=== PATIENT | male | born 1950 | race Caucasian/White ===

== ENCOUNTER 2018-04-18 00:55 | Emergency (ER) | payer SELFPAY ==
[2018-04-18] MEDS ORDERED: IPRATROPIUM BROM 0.5MG/2.5ML ONE (01:44)
[2018-04-18] MEDS ORDERED: DEXAMETHASONE 10 MG/ML VIAL ONE (01:44)
[2018-04-18] MEDS ORDERED: Levofloxacin500mg IV 500 MG/100 ML BAG IV ONE (01:44)
[2018-04-18] MEDS ORDERED: ALBUTEROL 2.5 MG/3 ML NEB SOL ONE (01:44)
[2018-04-18] MEDS ORDERED: NA CHLORIDE 0.9% 0 ML ONE (01:44)
[2018-04-18] MEDS ORDERED: FAMOTIDINE 20 MG/2 ML VIAL IV ONE (01:45)
[2018-04-18 01:49] LABS: Arterial Blood Carboxyhemoglob 7.4 % (0-1.5); Blood Gas Oxyhemoglobin 74.8 % (94-97); Blood O2 Saturation 82.1 % (92-98.5)
[2018-04-18 01:55] LABS: Absolute Lymphocytes (CBC) 0.8 K/uL (0.7-4.9); Absolute Monocytes 1.2 K/uL (0.1-1.3); Absolute Neutrophil 18.2 K/uL (1.8-8.0); Basophils % 0.1 % (0-1.3); Lymphocytes % 3.8 % (15.3-44.8); MPV 7.4 fL (7.6-11.3); Monocytes % 5.8 % (3.3-12.3); RBC Red Blood Cell Count 1.49 M/uL (4.33-5.43)
--- NOTE | 2018-04-18 01:55 | ER ---
Nurse's Notes [facility] Name: Dieudonne Ramirez Age: 67 yrs Sex: Male : 1950 Arrival Date: 04/18/2018 Time: 00:56 Bed 2 Private MD: Diagnosis: Dyspnea-supraglottic magligancy, lung malignancy;Chronic obstructive pulmonary disease with (acute) exacerbation;Hypoxemia;Gastrointestinal hemorrhage, unspecified-upper;Anemia, unspecified-upper gi bleed Presentation: 04/18 01:02 Presenting complaint: EMS states: Patient was the back porch smoking c/o shortness of tl1 breath and weakness for approx 1 day. Pt states he thinks he has an infection and has been coughing up lots of mucous. Pt states he has lost approx 30 pounds in approx 3 months. Pt states he has had a sore throat for 3 months. Transition of care: patient was not received from another setting of care. Onset of symptoms was April 18, 2018. Risk Assessment: Do you want to hurt yourself or someone else? Patient reports no desire to harm self or others. Initial Sepsis Screen: Does the patient meet any 2 criteria? RR > 20 per min. Systolic BP < 90 mmHg. Does the patient have a suspected source of infection? Yes: Productive cough/pneumonia If YES to both, name of provider notified: Andrea Nina MD. Care prior to arrival: Medication(s) given: Albuterol Neb Atrovent Neb x 1, solumedrol 125mg. 01:02 Method Of Arrival: EMS: [facility] tl1 01:02 Acuity: ROC 2 tl1 Historical: - Allergies: 04:40 No Known Allergies; tl1 - Home Meds: 01:03 valacyclovir 500 mg Oral tab 2 tabs 3 times per day [Active]; Albuterol Nebulizer bb [Active]; - PMHx: 04:40 COPD; shingles; tl1 - PSHx: 04:40 eye surgery; tl1 - Immunization history:: Adult Immunizations unknown. - Social history:: Smoking status: Patient uses tobacco products, smokes one pack cigarettes per day. Patient uses alcohol, on a daily basis. claims drinking about a 6 pack/day. - Family history:: not pertinent. - Ebola Screening: : Patient negative for fever greater than or equal to 101.5 degrees Fahrenheit, and additional compatible Ebola Virus Disease symptoms Patient denies exposure to infectious person Patient denies travel to an Ebola-affected area in the 21 days before illness onset. Screenin:07 Abuse screen: Denies threats or abuse. Denies injuries from another. Nutritional tl1 screening: Had unintentional weight loss of 10 pounds or more. Tuberculosis screening: Possible symptoms: cough for more than 2 weeks. Fall Risk IV access (20 points). Assessment: 02:18 General: Appears distressed, unkempt, cachectic, Behavior is calm, cooperative, tl1 appropriate for age. Pain: Denies pain. Neuro: Level of Consciousness is awake, alert, obeys commands, Oriented to person, place, time, situation. Cardiovascular: Reports shortness of breath, Denies chest pain. Cardiovascular: skin cool. Rhythm is sinus tachycardia with PACs. Respiratory: Reports shortness of breath at rest cough that is productive, labored breathing Airway is patent Trachea midline Respiratory effort is labored, shallow, weak, Breath sounds are diminished bilaterally. Breath sounds with rhonchi bilaterally. the patient has moderate shortness of breath. GI: Abdomen is non-distended, Bowel sounds present X 4 quads. Abd is soft and non tender X 4 quads. : Reports decreased urine output. EENT: No signs and/or symptoms were reported regarding the EENT system. 03:16 Reassessment: Patient to CT Scan. ca1 03:50 Reassessment: Patient appears in no apparent distress at this time. Patient is alert, ca1 oriented x 3, equal unlabored respirations, skin warm/dry/pink. Preparing patient for BT. 04:15 Reassessment: 1st unit of RBC started. Monitored patient at bedside every 5 minutes for ca1 15 minutes. 04:45 Reassessment: Patient appears in no apparent distress at this time. Reassessment: BT ca1 still ongoing. No adverse reaction noted. 04:50 Reassessment: Called report to Mariely Liriano RN of [facility]. ca1 05:36 Reassessment: Patient appears in no apparent distress at this time. Cleaned up patient, ca1 changed to a clean gown. Patient tolerates bed movements and repositioning well. Continued to have a productive cough of yellowish green sputum. 06:15 Reassessment: Completed first BT of PRBC. Patient tolerated well, no adverse reaction ca1 throughout transfusion. 06:30 Reassessment: 2nd bag of PRBC transfused. Monitored patient. ca1 06:30 Reassessment: [facility] At bedside for transfer. ca1 Vital Signs: 01:06 BP 82 / 45; Pulse 83; Resp 24; Temp 98.9; Pulse Ox 89% on R/A; Weight 65.32 kg; Height tl1 5 ft. 7 in. (170.18 cm); Pain 0/10; 02:22 BP 89 / 57; Pulse 108; Resp 26; Pulse Ox 100% on Nebulizer Mask; Pain 0/10; tl1 03:59 BP 90 / 60; Pulse 116; Resp 16; Pulse Ox 99% on 5 lpm NC; ca1 04:00 BP 90 / 60; Pulse 107; Resp 16; Pulse Ox 100% on 5 lpm NC; ca1 05:17 BP 93 / 56; Pulse 104; Resp 16; Pulse Ox 100% on 2 lpm NC; ca1 06:15 BP 90 / 57; Pulse 103; Resp 17; Pulse Ox 99% on 2 lpm NC; ca1 06:15 ca1 06:45 BP 109 / 61; Pulse 96; Resp 16; Pulse Ox 99.4% on 2 lpm NC; ca1 01:06 Body Mass Index 22.55 (65.32 kg, 170.18 cm) tl1 04:00 Baseline VS pre BT. See Transfusion Record Sheet for VS monitoring. ca1 06:15 VS for completion of 1st unit of PRBC. ca1 06:45 2nd unit of PRBC Transfusion continued with EMS. ca1 ED Course: 00:56 Patient arrived in ED. al2 01:00 Andrea Nina MD is Attending Physician. skyler 01:05 Triage completed. tl1 01:06 Arm band placed on right wrist. tl1 01:10 Patient has correct armband on for positive identification. Placed in gown. Bed in low ca1 position. Call light in reach. Side rails up X2. court monitor on. Pulse ox on. NIBP on. Warm blanket given. 01:21 X-ray completed. Portable x-ray completed in exam room. Patient tolerated procedure kw well. 01:25 XRAY Chest (1 view) In Process Unspecified. EDMS 01:36 Initial lab(s) drawn, by me, sent to lab. Missed attempt(s): 20 gauge in left forearm. jd3 Bleeding controlled, band aid applied, catheter tip intact. Inserted saline lock: 22 gauge in right antecubital area, using aseptic technique. Blood collected. 01:42 Radiology exam delayed due to lab results not completed at this time. (BUN/Creatinine). sj 01:52 Shayne Connell MD is Hospitalizing Provider. skyler 02:04 Radiology exam delayed due to lab results not completed at this time. (BUN/Creatinine). kw1 02:17 Patricia Espinosa RN is Primary Nurse. tl1 02:40 Medrano cath inserted, using sterile technique, 16 Fr., by wa, balloon inflated, to ca1 gravity drainage, clamped. urine specimen collected. 02:45 Consent for blood and/or blood product transfusion explained by staff, explained by ca1 physician, signed by patient. 03:[address] via stretcher. kw1 04:01 CT Soft Tissue Neck W/contr: no iv contrast In Process Unspecified. EDMS 04:03 CT completed. Patient tolerated procedure well. Patient moved back from CT. kw1 04:25 CT Chest For PE Angio In Process Unspecified. EDMS 05:20 Patient transferred, IV remains in place. ca1 05:21 No provider procedures requiring assistance completed. ca1 Administered Medications: 01:46 Drug: Albuterol - atroVENT (3:1) (2.5 mg - 0.5 mg) 3 ml Route: Nebulizer; tl1 04:02 Follow up: Response: No adverse reaction; Marked relief of symptoms ca1 01:47 Drug: NS 0.9% 500 ml Route: IV; Rate: bolus; Site: right hand; tl1 02:16 Follow up: IV Status: Completed infusion tl1 01:47 CANCELLED (physician changed order): SOLU-Medrol 125 mg IVP once tl1 01:48 Drug: levofloxacin 500 mg Volume: 100 ml; Route: IVPB; Infused Over: 60 mins; Site: tl1 right hand; 03:01 Follow up: IV Status: Completed infusion tl1 01:48 Drug: Pepcid 20 mg Route: IVP; Site: right hand; tl1 04:03 Follow up: Response: No adverse reaction ca1 01:49 Drug: Decadron - Dexamethasone 10 mg Route: IVP; Infused Over: 3 mins; Site: right hand;tl1 04:03 Follow up: Response: No adverse reaction ca1 02:17 Drug: NS 0.9% 1000 ml Route: IV; Rate: 125 ml/hr; Site: right hand; tl1 04:05 Follow up: IV Status: Infusion continued upon transfer ca1 02:31 CANCELLED (Duplicate Order): ProTONIX 40 mg IVP once skyler 02:51 Drug: ProTONIX 80 mg Route: IVP; Infused Over: 5 mins; Site: right forearm; tl1 04:04 Follow up: Response: No adverse reaction ca1 02:51 Drug: ProTONIX 8 mg/hr Route: IV; Rate: 25 ml/hr; Site: right forearm; tl1 04:05 Follow up: IV Status: Infusion continued upon transfer ca1 02:52 Drug: NS 0.9% 500 ml Route: IV; Rate: bolus; Site: right hand; tl1 04:04 Follow up: Response: No adverse reaction; IV Status: Completed infusion ca1 03:01 Drug: Zosyn 3.375 grams Route: IVPB; Infused Over: 60 mins; Site: right forearm; tl1 04:03 Follow up: Response: No adverse reaction; IV Status: Completed infusion ca1 03:54 Drug: Benadryl 12.5 mg Route: IVP; Site: right antecubital; ca1 05:21 Follow up: Response: No adverse reaction ca1 03:54 Drug: Tylenol Suppository 650 mg Route: [place]; ca1 05:21 Follow up: Response: No adverse reaction ca1 Outcome: 01:54 Decision to Hospitalize by Provider. skyler 02:36 ER care complete, transfer ordered by . skyler 06:45 Transferred by ground EMS to [facility], Transfer form ca1 completed. X-rays sent w/ patient. 06:45 Condition: stable 06:45 Instructed on the need for transfer, Demonstrated understanding of instructions. 07:04 Patient left the ED. ca1 Signatures: Dispatcher [employer] EDMS Andrea Nina MD MD cha Jones, Susan sj Ballard, Brenda, RN RN bb Whitley, Kimberlee kw Lasagna, Tonya, RN RN tl1 Lamont Robles RN RN Melody Levy kw1 Livier Faust al2 Ayana Mason RN RN ca1 Corrections: (The following items were deleted from the chart) 05:14 04:15 Reassessment: BT of 1 unit of RBC started. Monitored patient at bedside every 5 ca1 minutes for 15 minutes. ca1 06:55 05:36 Reassessment: Patient appears in no apparent distress at this time. Patient is ca1 alert, oriented x 3, equal unlabored respirations, skin warm/dry/pink. Cleaned up patient, changed to a clean gown. Patient tolerates bed movements and repositioning well. ca1 06:59 06:45 BP 109 / 61; Pulse 96bpm; Resp 16bpm; Pulse Ox 99.4%; 2nd unit of PRBC ca1 Transfusion continued with EMS.; ca1 07:01 05:36 Reassessment: Patient appears in no apparent distress at this time. Cleaned up ca1 patient, changed to a clean gown. Patient tolerates bed movements and repositioning well. ca1 07:03 05:20 Condition: stable ca1 ca1 07:03 05:20 Transferred by ground EMS to [facility], Transfer form ca1 completed. X-rays sent w/ patient. ca1 07:03 05:20 Instructed on the need for transfer, Demonstrated understanding of instructions, ca1 ca1
--- NOTE | 2018-04-18 01:55 | EDPHYS ---
Physician Documentation [facility] Name: Dieudonne Ramirez Age: 67 yrs Sex: Male : 1950 Arrival Date: 04/18/2018 Time: 00:56 Bed 2 Private MD: ED Physician Andrea Nina HPI: 04/18 01:13 This 67 yrs old Male presents to ER via EMS with complaints of dyspnea, copd skyler and weakness. 01:13 The patient has shortness of breath at rest, with light activity. Onset: The skyler symptoms/episode began/occurred 2 day(s) ago. The patient's shortness of breath is aggravated by coughing, exertion, light activity, is alleviated by sitting up, application of supplemental oxygen. The patient or guardian reports cough, described as moderate, difficulty breathing, flu symptoms, arthralgias, low-grade fever. Modifying factors: The symptoms are alleviated by elevating head, remaining still, rest. Associated signs and symptoms: The patient has no apparent associated signs or symptoms. Severity of symptoms: At their worst the symptoms were mild in the emergency department the symptoms are unchanged. Historical: - Allergies: 04:40 No Known Allergies; tl1 - Home Meds: 01:03 valacyclovir 500 mg Oral tab 2 tabs 3 times per day [Active]; Albuterol Nebulizer bb [Active]; - PMHx: 04:40 COPD; shingles; tl1 - PSHx: 04:40 eye surgery; tl1 - Immunization history:: Adult Immunizations unknown. - Social history:: Smoking status: Patient uses tobacco products, smokes one pack cigarettes per day. Patient uses alcohol, on a daily basis. claims drinking about a 6 pack/day. - Family history:: not pertinent. - Ebola Screening: : Patient negative for fever greater than or equal to 101.5 degrees Fahrenheit, and additional compatible Ebola Virus Disease symptoms Patient denies exposure to infectious person Patient denies travel to an Ebola-affected area in the 21 days before illness onset. ROS: 01:13 Constitutional: Negative for fever, chills, and weight loss, Eyes: Negative for injury, skyler pain, redness, and discharge, Neck: Negative for injury, pain, and swelling, Cardiovascular: Negative for chest pain, palpitations, and edema, Abdomen/GI: Negative for abdominal pain, nausea, vomiting, diarrhea, and constipation, Back: Negative for injury and pain, : Negative for injury, bleeding, discharge, and swelling, MS/Extremity: Negative for injury and deformity, Skin: Negative for injury, rash, and discoloration, Neuro: Negative for headache, weakness, numbness, tingling, and seizure, Psych: Negative for depression, anxiety, suicide ideation, homicidal ideation, and hallucinations, Allergy/Immunology: Negative for hives, rash, and allergies, Endocrine: Negative for neck swelling, polydipsia, polyuria, polyphagia, and marked weight changes, Hematologic/Lymphatic: Negative for swollen nodes, abnormal bleeding, and unusual bruising. :13 ENT: Positive for sore throat, hoarse voice x 5 months. Exam: :13 Constitutional: This is a well developed, well nourished patient who is awake, alert, skyler and in no acute distress. Head/Face: Normocephalic, atraumatic. Eyes: Pupils equal round and reactive to light, extra-ocular motions intact. Lids and lashes normal. Conjunctiva and sclera are non-icteric and not injected. Cornea within normal limits. Periorbital areas with no swelling, redness, or edema. ENT: Nares patent. No nasal discharge, no septal abnormalities noted. Tympanic membranes are normal and external auditory canals are clear. Oropharynx with no redness, swelling, or masses, exudates, or evidence of obstruction, uvula midline. Mucous membranes moist. Neck: Trachea midline, no thyromegaly or masses palpated, and no cervical lymphadenopathy. Supple, full range of motion without nuchal rigidity, or vertebral point tenderness. No Meningismus. Chest/axilla: Normal chest wall appearance and motion. Nontender with no deformity. No lesions are appreciated. Cardiovascular: Regular rate and rhythm with a normal S1 and S2. No gallops, murmurs, or rubs. Normal PMI, no JVD. No pulse deficits. Abdomen/GI: Soft, non-tender, with normal bowel sounds. No distension or tympany. No guarding or rebound. No evidence of tenderness throughout. Back: No spinal tenderness. No costovertebral tenderness. Full range of motion. Male : Normal genitalia with no discharge or lesions. Skin: Warm, dry with normal turgor. Normal color with no rashes, no lesions, and no evidence of cellulitis. MS/ Extremity: Pulses equal, no cyanosis. Neurovascular intact. Full, normal range of motion. Psych: Awake, alert, with orientation to person, place and time. Behavior, mood, and affect are within normal limits. 01:13 Respiratory: mild respiratory distress is noted, Respirations: no acute changes, labored breathing, Breath sounds: decreased breath sounds, rhonchi, Respiratory rate: 24 Vital Signs: 01:06 BP 82 / 45; Pulse 83; Resp 24; Temp 98.9; Pulse Ox 89% on R/A; Weight 65.32 kg; Height tl1 5 ft. 7 in. (170.18 cm); Pain 0/10; 02:22 BP 89 / 57; Pulse 108; Resp 26; Pulse Ox 100% on Nebulizer Mask; Pain 0/10; tl1 03:59 BP 90 / 60; Pulse 116; Resp 16; Pulse Ox 99% on 5 lpm NC; ca1 04:00 BP 90 / 60; Pulse 107; Resp 16; Pulse Ox 100% on 5 lpm NC; ca1 05:17 BP 93 / 56; Pulse 104; Resp 16; Pulse Ox 100% on 2 lpm NC; ca1 06:15 BP 90 / 57; Pulse 103; Resp 17; Pulse Ox 99% on 2 lpm NC; ca1 06:15 ca1 06:45 BP 109 / 61; Pulse 96; Resp 16; Pulse Ox 99.4% on 2 lpm NC; ca1 01:06 Body Mass Index 22.55 (65.32 kg, 170.18 cm) tl1 04:00 Baseline VS pre BT. See Transfusion Record Sheet for VS monitoring. ca1 06:15 VS for completion of 1st unit of PRBC. ca1 06:45 2nd unit of PRBC Transfusion continued with EMS. ca1 MDM: 01:00 Patient medically screened. skyler 01:18 Data reviewed: vital signs, nurses notes, lab test result(s), EKG, radiologic studies, [facility] CT scan, plain films. 04/18 01:12 Order name: Basic Metabolic Panel; Complete Time: 02:13 skyler 04/18 01:12 Order name: CBC with Diff; Complete Time: 02:22 skyler 04/18 01:12 Order name: LFT's; Complete Time: 02:13 skyler 04/18 01:12 Order name: Magnesium; Complete Time: 02:13 [facility] 04/18 01:12 Order name: NT PRO-BNP; Complete Time: 02:13 [facility] 04/18 01:12 Order name: PT-INR; Complete Time: 02:13 [facility] 04/18 01:12 Order name: Troponin (emerg Dept Use Only); Complete Time: 02:13 [facility] 04/18 01:12 Order name: Type And Screen [facility] 04/18 01:12 Order name: Lipase; Complete Time: 02:13 [facility] 04/18 01:12 Order name: Blood Culture Adult (2) [facility] 04/18 01:12 Order name: Procalcitonin; Complete Time: 02:27 [facility] 04/18 01:12 Order name: Lactate; Complete Time: 02:13 [facility] 04/18 01:13 Order name: Urine Culture [facility] 04/18 01:13 Order name: ABG; Complete Time: 02:13 [facility] 04/18 01:12 Order name: XRAY Chest (1 view) [facility] 04/18 01:12 Order name: CT Chest For PE Angio [facility] 04/18 01:51 Order name: CT Soft Tissue Neck W/contr: no iv contrast [facility] 04/18 02:17 Order name: Manual Differential; Complete Time: 02:22 EDPA 04/18 02:55 Order name: Urine Dipstick--Ancillary (enter results) ar5 04/18 03:06 Order name: ABO/RH no charge; Complete Time: 03:19 EDPA 04/18 03:09 Order name: Packed RBC Leukored -1 [facility]PA 04/18 01:12 Order name: EKG; Complete Time: 01:13 [facility] 04/18 01:12 Order name: Cardiac monitoring; Complete Time: 04:06 [facility] 04/18 01:12 Order name: EKG - Nurse/Tech; Complete Time: 04:06 [facility] 04/18 01:12 Order name: IV Saline Lock; Complete Time: 04:06 [facility] 04/18 01:12 Order name: Labs collected and sent; Complete Time: 04:06 [facility] 04/18 01:12 Order name: O2 Per Protocol; Complete Time: 04:06 [facility] 04/18 01:12 Order name: O2 Sat Monitoring; Complete Time: 04:06 [facility] 04/18 01:13 Order name: Urine Dipstick-Ancillary (obtain specimen); Complete Time: 04:03 [facility] 04/18 02:25 Order name: IV Saline Lock - Large Bore; Complete Time: 02:28 skyler 04/18 02:26 Order name: Mitchell; Complete Time: 02:51 skyler Administered Medications: 01:46 Drug: Albuterol - atroVENT (3:1) (2.5 mg - 0.5 mg) 3 ml Route: Nebulizer; tl1 04:02 Follow up: Response: No adverse reaction; Marked relief of symptoms ca1 01:47 Drug: NS 0.9% 500 ml Route: IV; Rate: bolus; Site: right hand; tl1 02:16 Follow up: IV Status: Completed infusion tl1 01:47 CANCELLED (physician changed order): SOLU-Medrol 125 mg IVP once tl1 01:48 Drug: levofloxacin 500 mg Volume: 100 ml; Route: IVPB; Infused Over: 60 mins; Site: tl1 right hand; 03:01 Follow up: IV Status: Completed infusion tl1 01:48 Drug: Pepcid 20 mg Route: IVP; Site: right hand; tl1 04:03 Follow up: Response: No adverse reaction ca1 01:49 Drug: Decadron - Dexamethasone 10 mg Route: IVP; Infused Over: 3 mins; Site: right hand;tl1 04:03 Follow up: Response: No adverse reaction ca1 02:17 Drug: NS 0.9% 1000 ml Route: IV; Rate: 125 ml/hr; Site: right hand; tl1 04:05 Follow up: IV Status: Infusion continued upon transfer ca1 02:31 CANCELLED (Duplicate Order): ProTONIX 40 mg IVP once skyler 02:51 Drug: ProTONIX 80 mg Route: IVP; Infused Over: 5 mins; Site: right forearm; tl1 04:04 Follow up: Response: No adverse reaction ca1 02:51 Drug: ProTONIX 8 mg/hr Route: IV; Rate: 25 ml/hr; Site: right forearm; tl1 04:05 Follow up: IV Status: Infusion continued upon transfer ca1 02:52 Drug: NS 0.9% 500 ml Route: IV; Rate: bolus; Site: right hand; tl1 04:04 Follow up: Response: No adverse reaction; IV Status: Completed infusion ca1 03:01 Drug: Zosyn 3.375 grams Route: IVPB; Infused Over: 60 mins; Site: right forearm; tl1 04:03 Follow up: Response: No adverse reaction; IV Status: Completed infusion ca1 03:54 Drug: Benadryl 12.5 mg Route: IVP; Site: right antecubital; ca1 05:21 Follow up: Response: No adverse reaction ca1 03:54 Drug: Tylenol Suppository 650 mg Route: SC; ca1 05:21 Follow up: Response: No adverse reaction ca1 Disposition: 04/18/18 02:36 Transfer ordered to [facility]. Diagnosis are Dyspnea - supraglottic magligancy, lung malignancy, Chronic obstructive pulmonary disease with (acute) exacerbation, Hypoxemia, Gastrointestinal hemorrhage, unspecified - upper, Anemia, unspecified - upper gi bleed. - Reason for transfer: Higher level of care. - Accepting physician is to [facility], icu mandeep moe. - Condition is Serious. - Problem is new. - Symptoms have improved. Signatures: Dispatcher [employer] EDMS Betzaida Ott RN RN mw Anderson, Corey, MD MD cha Ballard, Brenda, RN RN bb Lasagna, Tonya, RN RN tl1 Ayana Mason RN RN ca1 Corrections: (The following items were deleted from the chart) 01:47 01:12 SOLU-Medrol 125 mg IVP once ordered. skyler tl1 01:58 01:54 Hospitalization Ordered by Shayne Connell MD for Inpatient Admission. Preliminary [facility] diagnosis is Dyspnea; Chronic obstructive pulmonary disease with (acute) exacerbation; Hypoxemia; Pneumonia due to other specified bacteria. Bed requested for Telemetry/MedSurg (Inpatient). Status is Inpatient Admission. Condition is Serious. Problem is new. Symptoms have improved. UTI on Admission? No. skyler 02:25 01:58 04/18/2018 01:54 Hospitalization Ordered by Shayne Connell MD for Inpatient Admission. Preliminary diagnosis is Dyspnea; Chronic obstructive pulmonary disease with (acute) exacerbation; Hypoxemia; Pneumonia due to other specified bacteria; Hypotension. Bed requested for Telemetry/MedSurg (Inpatient). Status is Inpatient Admission. Condition is Serious. Problem is new. Symptoms have improved. UTI on Admission? No. skyler 02:31 02:25 ProTONIX 40 mg IVP once ordered. skyler skyler 02:34 02:25 04/18/2018 01:54 Hospitalization Ordered by Shayne Connell MD for Inpatient [facility] Admission. Preliminary diagnosis is Dyspnea; Chronic obstructive pulmonary disease with (acute) exacerbation; Hypoxemia; Pneumonia due to other specified bacteria; Hypotension. Bed requested for Telemetry/MedSurg (Inpatient). Status is Inpatient Admission. Condition is Serious. Problem is new. Symptoms have improved. UTI on Admission? No. mw 03:24 02:36 04/18/2018 02:36 Transfer ordered to [facility]. [facility] Diagnosis is Dyspnea; Chronic obstructive pulmonary disease with (acute) exacerbation; Hypoxemia; Gastrointestinal hemorrhage, unspecified - upper; Anemia, unspecified - upper gi bleed. Reason for transfer: Higher level of care. Accepting physician is to [facility]. Condition is Serious. Problem is new. Symptoms have improved. [facility] 05:09 03:24 04/18/2018 02:36 Transfer ordered to [facility]. Diagnosis is Dyspnea; skyler Chronic obstructive pulmonary disease with (acute) exacerbation; Hypoxemia; Gastrointestinal hemorrhage, unspecified - upper; Anemia, unspecified - upper gi bleed. Reason for transfer: Higher level of care. [facility], [facility]u mand[facility]ep moe. Condition is Serious. Problem is new. Symptoms have improved. [facility] 05:36 05:09 04/18/2018 02:36 Transfer ordered to [facility]. Diagnosis is Dyspnea - skyler supraglottic magligancy; Chronic obstructive pulmonary disease with (acute) exacerbation; Hypoxemia; Gastrointestinal hemorrhage, unspecified - upper; Anemia, unspecified - upper gi bleed. Reason for transfer: Higher level of care. Accepting physician [facility] to [facility] icu dr, sharma. Condition is Serious. Problem is new. Symptoms have improved. [facility] 07:04 05:36 04/18/2018 02:36 Transfer ordered to [facility]. Diagnosis is Dyspnea - ca1 supraglottic magligancy, lung malignancy; Chronic obstructive pulmonary disease with (acute) exacerbation; Hypoxemia; Gastrointestinal hemorrhage, unspecified - upper; Anemia, unspecified - upper gi bleed. Reason for transfer: Higher level of care. [facility], icu mandeep moe. Condition is Serious. Problem is new. Symptoms have improved. [facility]
[2018-04-18 02:00] LABS: Protime INR 1.17
[2018-04-18 02:12] LABS: Albumin 1.4 g/dL (3.4-5.0); Bilirubin Direct 0.1 mg/dL (0-0.2); Bilirubin Total 0.2 mg/dL (0.2-1.0); Magnesium 2.3 mg/dL (1.8-2.4); Potassium 4.2 mmol/L (3.5-5.1); Protein, Total 6.4 g/dL (6.4-8.2); Troponin (Emerg Dept Use Only) 0.02 ng/mL (0.0-0.045)
[2018-04-18 02:16] LABS: Hematocrit 13.6 % (39.6-49.0)
[2018-04-18 02:17] LABS: Blood Morphology Comment NOTED (NOT SEEN); Platelet Estimate INCR; Polychromasia 1+
[2018-04-18] MEDS ORDERED: PANTOPRAZOLE 40 MG INJ ONE ×2 (02:39→02:48)
[2018-04-18] MEDS ORDERED: PIPER/TAZO/NS 3.375gm 3.375 GM/100 ML BAG ONE (02:39)
[2018-04-18] MEDS ORDERED: NA CHLORIDE 0.9% 250 ML ONE (02:48)
[2018-04-18] MEDS ORDERED: NA CHLORIDE 0.9% 500 ML ONE ×2 (03:03→03:32)
[2018-04-18 03:32] LABS: Urine Blood NEGATIVE (NEG); Urine Glucose NEGATIVE (NEG); Urine Protein NEGATIVE (NEG); Urine Specific Gravity 1.015 (1.005-1.030)
[2018-04-18] MEDS ORDERED: DIPHENHYDRAMINE 50 MG/ML VIAL ONE (03:32)
[2018-04-18] MEDS ORDERED: ACETAMINOPHEN 650MG/RECT SUPP PR ONE (03:32)
--- NOTE | 2018-04-18 06:11 | RAD REPORT ---
EXAM DESCRIPTION: RAD - Chest Single View - 04/18/2018 1:27 am CLINICAL HISTORY: COPD, cough, shortness of breath COMPARISON: None. TECHNIQUE: AP portable chest image was obtained 0123 hours . FINDINGS: Interstitial and alveolar opacification present in the mid and lower right lung field. The re is dense consolidation in the left midlung field with patchy left base opacification. Pleural thic kening or pleural effusion are present at the left base. There is left hilar fullness. Heart and vasc ulature are normal. No pneumothorax seen. No acute bony abnormality seen. No acute aortic findings raphael spected. IMPRESSION: Bilateral airspace disease is present with left pleural effusion or pleural thickening. In the acute clinical setting bilateral pneumonia would be the primary considerations. Malignant etio logy is not excluded. Follow-up CT chest imaging is recommended.
[2018-04-18] MEDS ORDERED: NA CHLORIDE 0.9% 1,000 ML ONE (06:43)
--- NOTE | 2018-04-18 07:13 | EKG ---
Test Date: 2018-04-18 Test Time: 01:19:59 Manager [employer]: LESA MEASUREMENT RESULTS: Intervals: Rate: 116 NJ: 136 QRSD: 84 QT: 364 QTc: 505 [place]: P: 76 NJ: 136 QRS: 69 T: 67 INTERPRETIVE STATEMENTS: Sinus tachycardia with premature atrial complexes Nonspecific ST abnormality Abnormal ECG No previous ECG available for comparison Electronically Signed On 04-18-18 07:12:31 BUSINESS JOB TITLES by Mingo Aponte
--- NOTE | 2018-04-18 08:02 | RAD REPORT ---
EXAM DESCRIPTION: CT - Soft Tissue Neck W/Contr - 04/18/2018 7:10 am CLINICAL HISTORY: Weakness, shortness of breath, unexplained weight loss A preliminary report was provided at the time of the study and reviewed prior to final report. TECHNIQUE: Axial 3 millimeter thick images of the neck were obtained without contrast. All CT scans are performed using dose optimization technique as appropriate and may include automated exposure control or mA/KV adjustment according to patient size. FINDINGS: Intracranial portion the examination is unremarkable. Mastoid air cells and partially visu alized paranasal sinuses are clear. No nasopharyngeal mass or asymmetry seen. Soft palate and uvula are normal. No tongue base abnormalit y seen. No tonsil enlargement. Asymmetric soft tissue is present with nodular appearance to the left aryepiglottic fold. Asymmetric thickened soft tissue is seen in the midline of the area epiglottic fold. Asymmetry of the right-side vocal cord is present. Exam is limited in terms of lymph node assessment due to the absence of contrast. No large or bulky l ymphadenopathy seen. Arterial tree calcifications are present. Parotid, submandibular and thyroid gland tissue unremarkable. 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 No bulky lymphadenopathy identified. Soft tissue assessment is limited in the absence of contrast.
--- NOTE | 2018-04-18 08:24 | RAD REPORT ---
EXAM DESCRIPTION: CT - Chest For Pe Angio - 04/18/2018 7:10 am CLINICAL HISTORY: COPD, chest pain, shortness of breath A preliminary report was provided at the time of the study and reviewed prior to final report. COMPARISON: Chest exam same date TECHNIQUE: Dynamically enhanced 3 mm thick images of the chest were obtained during administration o f approximately 150mL Isovue 370 IV contrast. Coronal and oblique MIP reconstruction images were gene rated and reviewed. Exam utilizes a protocol to evaluate the pulmonary arterial tree. All CT scans are performed using dose optimization technique as appropriate and may include automated exposure control or mA/KV adjustment according to patient size. FINDINGS: No pulmonary emboli are identified. The aorta as imaged shows no acute or suspicious finding. No pericardial thickening or effusion. Ques tionable left ventricular hypertrophy noted. Multiple pleural and parenchymal abnormalities are present. Patient has advanced COPD as a baseline. In the right middle lobe the patient has a 6 x 5 centimeter soft tissue mass. There is a central 2 ce ntimeter cavity present. An adjacent satellite 2.5 centimeter spiculated mass is present at the infer ior aspect of the right middle lobe. Posterior gutter atelectasis is present. There is a 9 x 4 centim eter loculated pleural effusion in the right base. In the superior and midportion of the left lower l obe there is a large area of consolidation that extends from the hilum reaching the posterior and lat eral pleural margin. Multiple areas of diminished attenuation are present that could be loculated flu id or necrotic lung parenchyma. Air bronchograms are present. Several small air-filled cavitations ar e present within this large area of consolidation. Small left pleural fluid component present as well . Subcarinal 3 centimeter mass or lymphadenopathy noted. Left hilar lymphadenopathy could be obscured b y the consolidated parenchyma. No chest wall invasion identified. No axillary lymphadenopathy. IMPRESSION: No pulmonary emboli identified. Large area of consolidated parenchyma involving the majority of the left lower lobe with several area s of cavitation. Malignancy is favored over cavitary pneumonia. Approximately 6 centimeter cavitary mass in the right middle lobe with adjacent satellite lesion. Mal ignancy is favored over cavitary pneumonia. Approximately 9 x 4 centimeter loculated pleural fluid collection in the posterior right gutter with adjacent atelectasis. Malignant etiology is not excluded for this collection as well. Subcarinal lymphadenopathy.
== END 2018-04-18 07:04 | disposition short-term general hospital (02) ==
LOC: ER 00:55
PROC: 30233N1 Transfusion of Nonautologous Red Blood Cells into Peripheral Vein, Percutaneous Approach (ICD-10-PCS; principal; 2018-04-18)
DX: J44.1 Chronic obstructive pulmonary disease with (acute) exacerbation (principal); R09.02 Hypoxemia; K92.2 Gastrointestinal hemorrhage, unspecified; D64.9 Anemia, unspecified; F17.210 Nicotine dependence, cigarettes, uncomplicated; Z85.118 Personal history of other malignant neoplasm of bronchus and lung
CPT/HCPCS: 36415; 51702; 70491; 71045; 71275; 80048; 80076; 81003; 82805; 83605; 83690; 83735; 83880; 84145; 84484; 85025; 85610; 86850; 86900; 86901; 87040; 87086; 87088; 93005; 94640; 99285; C9113; J1100; J2543; J7030; P9016; Q9967

== ENCOUNTER 2018-07-15 21:15 | Emergency (ER) | payer OTHER, SELFPAY ==
[2018-07-15] MEDS ORDERED: Caclcium Chloride 10% INJ SYR IV ONE (21:16)
[2018-07-15] MEDS ORDERED: ATROPINE SULF 1 MG/10 ML SYR IV ONE (21:16)
[2018-07-15] MEDS ORDERED: D50W 25 GM/50 ML SYRINGE IV ONE (21:16)
[2018-07-15] MEDS ORDERED: NA CHLORIDE 0.9% 1,000 ML IV ONE (21:16)
[2018-07-15] MEDS ORDERED: NA CHLORIDE 0.9% 250 ML IV ONE (21:16)
--- OUTSIDE RECORDS SUMMARY | 2018-07-15 21:17 | XMS REPORT ---
:1950 [facility] Address [address] [place] [address] Care Team Providers Name Role Phone Unavailable Unavailable Unavailable Problems This patient has no known problems. Allergies, Adverse Reactions, Alerts This patient has no known allergies or adverse reactions. Medications This patient has no known medications.
[2018-07-15] MEDS ORDERED: DOPAMINE/D5W 400 MG/250 ML BAG IV ONE (21:33)
[2018-07-15 22:07] LABS: Absolute Lymphocytes (CBC) 1.2 K/uL (0.7-4.9); Absolute Monocytes 0.5 K/uL (0.1-1.3); Absolute Neutrophil 17.4 K/uL (1.8-8.0); Basophils % 0.2 % (0-1.3); Eosinophils % 0.1 % (0-4.4); Hematocrit 28.1 % (39.6-49.0); Lymphocytes % 6.2 % (15.3-44.8); MPV 8.6 fL (7.6-11.3); Monocytes % 2.4 % (3.3-12.3); RBC Red Blood Cell Count 3.17 M/uL (4.33-5.43)
[2018-07-15 22:08] LABS: Arterial Blood Carboxyhemoglob 3.8 % (0-1.5); Blood Gas Oxyhemoglobin 92.9 % (94-97); Blood O2 Saturation 97.2 % (92-98.5)
[2018-07-15 22:10] LABS: Protime INR 1.32
[2018-07-15] MEDS ORDERED: CLINDAMYCIN 900MG/D5W 900 MG/50 ML IVPB IV ONE (22:23)
[2018-07-15] MEDS ORDERED: PIPERACIL/TAZO 4.5 GM VIAL IV ONE (22:23)
[2018-07-15] MEDS ORDERED: NA CHLORIDE 0.9% 250 ML ONE (22:24)
[2018-07-15 22:38] LABS: ALT/SGPT 19 U/L (12-78); AST/SGOT 29 U/L (15-37); Albumin 0.9 g/dL (3.4-5.0); Alkaline Phosphatase 163 U/L (45-117); BUN Blood Urea Nitrogen 14 mg/dL (7-18); Bicarbonate 30 mmol/L (21-32); Bilirubin Direct 0.2 mg/dL (0-0.2); Bilirubin Total 0.4 mg/dL (0.2-1.0); Creatine Phosphokinase 86 U/L (39-308); Glucose Level 74 mg/dL (74-106); Lipase 17 U/L (73-393); Potassium 4.2 mmol/L (3.5-5.1); Protein, Total 6.2 g/dL (6.4-8.2); Sodium Level 132 mmol/L (136-145); Troponin (Emerg Dept Use Only) < 0.02 ng/mL (0.0-0.045)
[2018-07-15] MEDS ORDERED: NOREPINEPHRINE 4mg/D5W 250mL 4 MG/250 ML BAG IV ONE (22:40)
[2018-07-15 23:18] LABS: Blood Morphology Comment NOT SEEN (NOT SEEN); Platelet Estimate DECR; Toxic Granulation 1+
[2018-07-16] MEDS ORDERED: NA CHLORIDE 0.9% 1,000 ML ONE (00:21)
[2018-07-16 00:43] LABS: Urine Amorphous Sediment 4+ /HPF (NONE SEEN); Urine Bacteria <20 /HPF (NONE SEEN); Urine Culture Reflex Order NOT NEEDED; Urine RBC <5 /HPF (NONE SEEN)
[2018-07-16 00:53] LABS: Urine Blood 1+ (NEG); Urine Glucose NEGATIVE (NEG); Urine Protein 2+ (NEG)
--- NOTE | 2018-07-16 01:24 | EDPHYS ---
Physician Documentation [facility] Name: Dieudonne Ramirez Age: 67 yrs Sex: Male : 1950 Arrival Date: 07/15/2018 Time: 21:43 Bed 2 Private MD: ED Physician Antoine Lamb HPI: 07/16 01:34 This 67 yrs old Male presents to ER via EMS with complaints of Cardiac Arrest.gs 01:34 The arrest occurred at home. Pre-hospital course: The arrest was witnessed by family. gs Bystanders at the scene performed CPR. ACLS details: Airway: oral intubation, Medications given by EMS prior to arrival - Epinephrine IV x 3 doses, Response to therapy: return of rhythm, return of pulse. The patient has not experienced similar symptoms in the past. Historical: - Allergies: 07/15 22:32 No Known Allergies; fc - Home Meds: 22:32 albuterol sulfate 2.5 mg /3 mL (0.083 %) inhalation nebu 4 times per day [Active]; fc Atrovent Nebulizer four times a day [Active]; Symbicort inhalation inhalation 2 puffs 2 times per day [Active]; ProAir HFA 90 mcg/actuation inhalation HFAA 2 puffs every 4 hours [Active]; Potassium Chloride Oral [Active]; Protonix Oral once daily [Active]; - PMHx: 22:32 COPD; shingles; Throat Cancer; CVA; Stomach Ulcer; fc - PSHx: 22:32 eye surgery; G tube; fc - Immunization history:: Last tetanus immunization: up to date Flu vaccine is up to date. - Social history:: Smoking status: Patient uses tobacco products, denies chronic smoking, but will smoke occasionally, but has smoked all his life, Patient/guardian denies using alcohol, street drugs. - Ebola Screening: : Patient negative for fever greater than or equal to 101.5 degrees Fahrenheit, and additional compatible Ebola Virus Disease symptoms Patient denies exposure to infectious person Patient denies travel to an Ebola-affected area in the 21 days before illness onset. - Code Status:: Full code. ROS: 07/16 01:34 Unable to obtain ROS due to patient distress. gs Exam: 01:34 Head/Face: Normocephalic, atraumatic. Eyes: Pupils equal round and reactive to light, gs extra-ocular motions intact. Lids and lashes normal. Conjunctiva and sclera are non-icteric and not injected. Cornea within normal limits. Periorbital areas with no swelling, redness, or edema. ENT: Nares patent. No nasal discharge, no septal abnormalities noted. Tympanic membranes are normal and external auditory canals are clear. Oropharynx with no redness, swelling, or masses, exudates, or evidence of obstruction, uvula midline. Mucous membranes moist. Neck: Trachea midline, no thyromegaly or masses palpated, and no cervical lymphadenopathy. Supple, full range of motion without nuchal rigidity, or vertebral point tenderness. No Meningismus. Chest/axilla: Normal chest wall appearance and motion. Nontender with no deformity. No lesions are appreciated. 01:34 Back: No spinal tenderness. No costovertebral tenderness. Full range of motion. 01:34 Constitutional: The patient appears comatose, in obvious distress, severely distressed. 01:34 Cardiovascular: Rate: tachycardic, Rhythm: regular, Pulses: thready. 01:34 ECG was reviewed by the Attending Physician. 01:34 Respiratory: severe repiratory distress is noted, Respirations: Breath sounds: rales, rhonchi. 01:34 Abdomen/GI: Inspection: abdomen appears normal, Palpation: soft. 01:34 Skin: Appearance: Color: pale, Temperature: cool. 01:34 Neuro: pupil fixed no response to pain gcs 3. Vital Signs: 07/15 21:16 BP 94 / 56; Pulse 108; Resp 18 A; Temp 94.7(R); Weight 63.05 kg (R); Height 5 ft. 6 in. (167.64 cm); Pain 0/10; 21:21 BP 74 / 59; Pulse 108; Resp 18 A; Pulse Ox 100% on ETT ambu; 21:26 BP 145 / 98; Pulse 99; Resp 16 A; 21:30 BP 113 / 74; Pulse 100; Resp 16 A; Pulse Ox 100% on 100% FiO2 ETT vent; 21:32 BP 78 / 64; Pulse 101; Resp 14 A; Pulse Ox 100% on ETT vent; 21:33 BP 70 / 59; Pulse 104; Resp 14 A; Pulse Ox 97% on 100% FiO2 ETT vent; 21:44 BP 74 / 51; Pulse 102; Resp 25; Pulse Ox 97% on 100% FiO2 ETT vent; fc 21:51 BP 78 / 56; Pulse 103; Resp 25; Temp 93.3; ak1 21:52 BP 76 / 53; Pulse 102; Resp 25 A; Pulse Ox 100% on 100% FiO2 ETT vent; fc 21:54 BP 83 / 53; Pulse 103; Resp 23; Temp 93.4; ak1 21:57 BP 82 / 51; Pulse 104; Resp 23; Temp 93.4; ak1 22:00 BP 80 / 49; Pulse 104; Resp 25; Temp 93.3; ak1 22:03 BP 77 / 56; Pulse 104; Resp 24; Temp 93.2; ak1 22:06 BP 80 / 44; Pulse 104; Resp 19; Temp 93.1; ak1 22:09 BP 81 / 48; Pulse 104; Resp 22; Temp 93; ak1 22:11 BP 69 / 51; Pulse 104; Temp 92.9; ak1 22:12 BP 81 / 47; Pulse 103; Temp 92.8; ak1 22:15 BP 78 / 46; Pulse 103; Temp 92.7; ak1 22:18 BP 80 / 43; Pulse 104; Temp 92.6; ak1 22:21 BP 78 / 40; Pulse 105; Resp 25; Temp 92.6; ak1 22:24 BP 72 / 45; Pulse 105; Resp 25; Temp 92.6; Pulse Ox 86% on 100% FiO2 ETT vent; ak1 22:30 BP 71 / 45; Pulse 103; Resp 25; Temp 92.6(C); Pulse Ox 74% on 100% FiO2 ETT vent; ak1 22:33 BP 70 / 43; Pulse 103; Resp 25; Temp 92.6(C); Pulse Ox 77% on 100% FiO2 ETT vent; ak1 22:36 BP 71 / 44; Pulse 105; Resp 29; Temp 92.6(C); Pulse Ox 78% on 100% FiO2 ETT vent; ak1 22:40 BP 71 / 41; Pulse 104; Resp 49; Pulse Ox 84% on 100% FiO2 ETT vent; ak1 22:57 BP 88 / 54; Pulse 108; Resp 29; Temp 93.1(C); Pulse Ox 84% on 100% FiO2 ETT vent; ak1 23:34 BP 82 / 49; Pulse 117; Resp 30; Temp 94.3; ak1 23:45 BP 86 / 51; Pulse 115; Resp 14; Temp 94.7(C); Pulse Ox 77% on 100% FiO2 ETT vent; ak1 23:50 BP 94 / 62; Pulse 116; Resp 24; Temp 94.8; Pulse Ox 78% on 100% FiO2 ETT vent; ak1 23:55 BP 91 / 61; Pulse 114; Resp 24; Temp 94.9(C); Pulse Ox 81% on 100% FiO2 ETT vent; ak1 07/16 00:00 BP 92 / 67; Pulse 115; Resp 24; Temp 95(C); Pulse Ox 80% on 100% FiO2 ETT vent; ak1 00:05 BP 95 / 65; Pulse 116; Resp 21; Temp 95.1(C); Pulse Ox 80% on 100% FiO2 ETT vent; ak1 00:10 BP 94 / 63; Pulse 116; Resp 24; Temp 95.1; Pulse Ox 80% on 100% FiO2 ETT vent; ak1 00:15 BP 102 / 72; Pulse 115; Resp 24; Temp 95.4(C); Pulse Ox 83% on 100% FiO2 ETT vent; ak1 00:20 BP 99 / 70; Pulse 114; Resp 24; Temp 95.5(C); Pulse Ox 86% on 100% FiO2 ETT vent; ak1 00:30 BP 103 / 62; Pulse 102; Resp 25 A; Temp 95.9(C); Pulse Ox 80% on 100% FiO2 ETT vent; ak1 00:40 BP 94 / 57; Pulse 112; Resp 26 A; Temp 95.9(C); Pulse Ox 80% on 100% FiO2 ETT vent; ak1 00:45 BP 96 / 70; Pulse 111; Resp 25; Temp 96.1(C); Pulse Ox 84% on 100% FiO2 ETT vent; ak1 00:50 BP 99 / 71; Pulse 112; Resp 25; Temp 96.2(C); Pulse Ox 83% on 100% FiO2 ETT vent; ak1 00:55 BP 92 / 56; Pulse 125; Resp 25; Temp 96.3(C); Pulse Ox 78% on 100% FiO2 ETT vent; ak1 01:00 BP 82 / 51; Pulse 125; Resp 25; Temp 96.5(C); Pulse Ox 72% on 100% FiO2 ETT vent; ak1 01:05 BP 83 / 61; Pulse 124; Resp 24; Temp 96.6(C); Pulse Ox 78% on 100% FiO2 ETT vent; ak1 01:15 BP 84 / 61; Pulse 124; Resp 25; Temp 96.9(C); Pulse Ox 74% on 100% FiO2 ETT vent; ak1 01:43 BP 93 / 62; Pulse 131; Resp 25; Temp 97.7(C); Pulse Ox 81% on 100% FiO2 ETT vent; ak1 02:37 BP 91 / 64; Pulse 139; Resp 25; Temp 98.3(C); Pulse Ox 74% on 100% FiO2 ETT vent; ak1 07/15 21:16 Body Mass Index 22.43 (63.05 kg, 167.64 cm) fc 01:05 levophed increased to 25ml/hr ak 01:15 levophed increased to 8mcg/min ak Ventilator: 07/15 21:30 Fi02: 100%; Rate: 14min; T.V.: 550ml; Peep: 0cm; Mode: CMV; ET tube: 7.5 mm (Oral); fc 21:44 Fi02: 100%; Rate: 25min; T.V.: 450ml; Mode: CMV; ET tube: 7.5 mm; fc Procedures: 07/16 01:46 Central Line: the site was prepped with in sterile fashion, a triple lumen catheter was gs inserted, in the right internal jugular vein, in 1 attempts. placement was verified, by CXR, the site was dressed with Tegaderm, the patient tolerated the procedure, well. MDM: 07/15 21:48 Patient medically screened. gs 07/16 01:34 Differential diagnosis: arrythmia, cardiac arrest, respiratory arrest, sepsis. Data gs reviewed: vital signs, nurses notes, lab test result(s), EKG, radiologic studies. Counseling: I had a detailed discussion with the patient and/or guardian regarding: the historical points, exam findings, and any diagnostic results supporting the discharge/admit diagnosis, the need to transfer to another facility. Response to treatment: the patient's symptoms have mildly improved after treatment. 07/15 21:45 Order name: ABG; Complete Time: 23:02 07/15 21:51 Order name: Basic Metabolic Panel; Complete Time: 23:02 07/15 21:51 Order name: Blood Culture Adult (2) 07/15 21:51 Order name: CBC with Diff; Complete Time: 01:04 07/15 21:51 Order name: CPK; Complete Time: 23:02 07/15 21:51 Order name: Lactate; Complete Time: 23:02 07/15 21:51 Order name: LFT's; Complete Time: 23:02 07/15 21:51 Order name: Lipase; Complete Time: 23:02 07/15 21:51 Order name: Procalcitonin; Complete Time: 23:02 07/15 21:51 Order name: Protime (+inr); Complete Time: 23:02 07/15 21:51 Order name: Troponin (emerg Dept Use Only); Complete Time: 23:02 07/15 21:51 Order name: Urine Microscopic Only; Complete Time: 01:04 07/15 22:51 Order name: ABG; Complete Time: 02:23 [facility] 07/15 23:18 Order name: Glucose, Ancillary Testing; Complete Time: 01:04 [facility] 07/15 21:46 Order name: Chest Single View XRAY 07/15 21:51 Order name: Accucheck; Complete Time: 22:09 07/15 21:51 Order name: Cardiac monitoring; Complete Time: 22:09 07/15 22:40 Order name: Ct Stroke Brain Wo Cont EDFL 07/15 22:40 Order name: Angio Aorta For Dissection EDFL 07/15 23:18 Order name: Manual Differential; Complete Time: 01:04 [facility] 07/16 00:27 Order name: Urine Dipstick--Ancillary (enter results); Complete Time: 01:04 [facility] 07/16 00:42 Order name: ABG; Complete Time: 02:23 [facility] 07/15 21:51 Order name: EKG - Nurse/Tech; Complete Time: 22:10 07/15 21:51 Order name: IV Saline Lock - Large Bore; Complete Time: 22:09 07/15 21:51 Order name: Labs collected and sent; Complete Time: 22:09 07/15 21:51 Order name: O2 Per Protocol; Complete Time: 22:09 07/15 21:51 Order name: O2 Sat Monitoring; Complete Time: 22:09 07/15 21:51 Order name: Urine Dipstick-Ancillary (obtain specimen); Complete Time: 00:28 gs Administered Medications: 07/15 21:24 Drug: Dopamine drip 5 mcg/kg/min - (DOPamine 400 mg, D5W 250 ml) {Note: order per dr to fc start at 12 mcg/kg thru IO per Josephine RN.} Route: IV; Rate: calculated rate; Site: Other; 07/16 02:46 Follow up: IV Status: Infusion continued upon transfer [facility] 07/15 21:25 Drug: Sodium Bicarbonate 0.5 amp {Note: 1/2 amb of Na Bicarb (25 meq) IVP thru IO per Jazmin GODFREY.} Route: IVP; Site: Other; 07/16 00:21 Follow up: Response: No adverse reaction [facility] 07/15 21:40 Drug: NS 0.9% 1000 ml Route: IV; Rate: 1 bolus; Site: right jugular; ak1 22:15 Drug: Zosyn 4.5 grams Route: IVPB; Infused Over: 60 mins; Site: right jugular; ak1 22:18 Drug: Clindamycin 900 mg Route: IVPB; Infused Over: 30 mins; Site: right jugular; ak1 22:44 Follow up: IV Status: Completed infusion; IV Intake: 50ml ak 22:40 Drug: NS 0.9% 1000 ml Route: IV; Rate: 150 ml/hr; Site: right jugular; ak1 22:47 Drug: Norepinephrine (4 mg/250 mL D5W) 4 mcg/min Route: IV; Rate: calculated rate; [facility] Site: right jugular; 07/16 02:47 Follow up: IV Status: Infusion continued upon transfer ak 00:15 Drug: NS 0.9% 1000 ml Route: IV; Rate: 1 bolus; Site: right jugular; ak1 01:19 Follow up: IV Status: Completed infusion; IV Intake: 1000ml [facility] Point of Care Testing: Blood Glucose: 07/15 21:21 Blood Glucose: 71 mg/dL; Ranges: Critical Glucose Levels:Adult <50 mg/dl or >400 mg/dl <40 mg/dl or >180 mg/dl Disposition: 07/16 01:34 Critical Care:. gs Disposition: 07/16/18 01:23 Transfer ordered to [facility]. Diagnosis are Cardiac arrest, Abscess of lung with pneumonia, Severe sepsis with septic shock. - Reason for transfer: Higher level of care. - Accepting physician is [facility]. - Condition is Critical. - Problem is new. - Symptoms have improved. Critical care time excluding procedures: 01:34 Critical care time: Bedside Care: 60 minutes, Consultation: 20 minutes, Family gs Intervention: 10 minutes. Total time: 90 minutes Signatures: Dispatcher [employer] EDNa Villa RN RN Jsoephine Monroe RN RN ak1 Antoine Lamb MD MD gs Corrections: (The following items were deleted from the chart) 01:23 01:23 07/16/2018 01:23 Transfer ordered to [facility]. Diagnosis is Cardiac arrest; gs Abscess of lung with pneumonia; Severe sepsis with septic shock. Reason for transfer: Higher level of care. Accepting physician is [facility]. Condition is Stable. Problem is new. Symptoms have improved. 02:45 01:23 07/16/2018 01:23 Transfer ordered to [facility]. Diagnosis is Cardiac arrest; ak1 Abscess of lung with pneumonia; Severe sepsis with septic shock. Reason for transfer: Higher level of care. Accepting physician is [facility]. Condition is Critical. Problem is new. Symptoms have improved.
--- NOTE | 2018-07-16 01:24 | ER ---
Nurse's Notes [facility] Name: Dieudonne Ramirez Age: 67 yrs Sex: Male : 1950 Arrival Date: 07/15/2018 Time: 21:43 Bed 2 Private MD: Diagnosis: Cardiac arrest;Abscess of lung with pneumonia;Severe sepsis with septic shock Presentation: 07/15 21:16 Presenting complaint: EMS states: that pt was taking a bath and upon completion was fc assisted out of the bath by his son. While sitting on the toilet to dry off pt became unresponsive and slumped over. Upon arrival of EMS pt was in PEA. Also noted blood in the toilet. Care prior to arrival: Assisted ventilation, Oral intubation, 7.5 ETT, 24 at the lip CPR via thumper performed by EMS SWING SAW OPERATOR Placed on backboard. Medication(s) given: Epi x 4, Na Bicarb x 1, and Ca Cl x 1 IV initiated. in the left lower leg IO Glucose check: 120. Compressions began prior to arrival. 21:16 Acuity: ROC 1 fc 21:16 Method Of Arrival: EMS: [facility] ak1 22:03 Transition of care: patient was not received from another setting of care. Onset of fc symptoms was July 15, 2018. Risk Assessment: Do you want to hurt yourself or someone else? Patient reports no desire to harm self or others. Initial Sepsis Screen: Does the patient meet any 2 criteria? Temp <36.0*C (96.8*F)) or > 38.3*C (100.9*F). HR > 90 bpm. Yes Does the patient have a suspected source of infection? Yes: Productive cough/pneumonia If YES to both, name of provider notified: Antoine Lamb MD Historical: - Allergies: 22:32 No Known Allergies; fc - Home Meds: 22:32 albuterol sulfate 2.5 mg /3 mL (0.083 %) inhalation nebu 4 times per day [Active]; fc Atrovent Nebulizer four times a day [Active]; Symbicort inhalation inhalation 2 puffs 2 times per day [Active]; ProAir HFA 90 mcg/actuation inhalation HFAA 2 puffs every 4 hours [Active]; Potassium Chloride Oral [Active]; Protonix Oral once daily [Active]; - PMHx: 22:32 COPD; shingles; Throat Cancer; CVA; Stomach Ulcer; fc - PSHx: 22:32 eye surgery; G tube; fc - Immunization history:: Last tetanus immunization: up to date Flu vaccine is up to date. - Social history:: Smoking status: Patient uses tobacco products, denies chronic smoking, but will smoke occasionally, but has smoked all his life, Patient/guardian denies using alcohol, street drugs. - Ebola Screening: : Patient negative for fever greater than or equal to 101.5 degrees Fahrenheit, and additional compatible Ebola Virus Disease symptoms Patient denies exposure to infectious person Patient denies travel to an Ebola-affected area in the 21 days before illness onset. - Code Status:: Full code. Screenin:16 Abuse screen: Denies threats or abuse. Nutritional screening: No deficits noted. fc Tuberculosis screening: No symptoms or risk factors identified. Fall risk At risk due to age, prior history of falls, Intervention for positive screen: instructed to call for assist when getting up, side rails up. Exposure risk/Travel Screening: None identified. 22:13 Fall Risk Fall in past 12 months (25 points). Secondary diagnosis (15 points) CVA, IV fc access (20 points). Ambulatory Aid- Crutches/Cane/Walker (15 pts). Gait- Weak (10 pts.). Mental Status- Overestimates/Forgets Limitations (15 pts.). Total Pratt Fall Scale indicates High Risk Score (45 or more points). Fall prevention measures have been instituted. Side Rails Up X 2 Placed Close to Nursing Station Frequent Obs/Assessments Occuring Family Present and informed to notify staff if the need to leave the bedside As available patient and family educated on Fall Prevention Program and Strategies. Assessment: 21:24 Reassessment: SBP 74, Dopamine started at 12 mcg/kg. fc 21:24 General: Appears ill, slender, emaciated, Behavior is unresponsive. Neuro: Level of ak1 Consciousness is unresponsive. Cardiovascular: pt s/o CPR. 21:24 Respiratory: Airway via oral intubation Respiratory effort is assisted via BVM from EMS ak1 upon arrival. GI: Abdomen is flat, GTube noted to left upper abd. EENT: Eyes are tearing on outer aspect of conjuctiva of right eye, iris of right eye, inner aspect of conjuctiva of right eye, outer aspect of conjuctiva of left eye, iris of left eye and inner aspect of conjunctiva of left eye with exudate noted from outer aspect of conjuctiva of left eye. Derm: Skin is dry, Skin is dusky, mottled, Skin temperature is cool Wound noted Other: multiple skin tears to bilateral upper extremities. Musculoskeletal: Capillary refill is > 3 seconds, in bilateral Swelling present in dorsum of left foot IO noted to left lower extremity. pt unresponsive s/p CRP SWING SAW OPERATOR. 21:33 Reassessment: SBP 70. dopamine increased to 15 mcg/kg. fc 21:44 Reassessment: SBP 74, Dopamine increased to 20 mcg/kg. fc 22:40 Reassessment: Levophed started at 12mcg/min. ak1 22:50 Reassessment: levophed increased to 20mcg/min per Dr. Burroughs verbal order. ak1 22:50 Pain: Unable to use pain scale. Patient is unresponsive. ak1 23:51 Reassessment: pt transported to CT. ak1 07/16 00:22 Reassessment: Patient appears in no apparent distress at this time. pt remains on ak1 20mcg/min Dopamine, 20mcg/min Levophed as well as the warming blanket. Dr. Lamb, Dr. Connell speaking to family about possible transfer to [facility]. 00:24 CPR assessment: unresponsive, intubated, mechanical ventilation, cyanotic, pale. ak1 Cardiac rhythm is Sinus Tach. 00:58 Reassessment: dopamine reduced to 14mcg/kg/min and levophed reduced to 15mcg/min. ak1 01:42 Reassessment: levophed increased to 20mcg/min by Na Grewal RN. ak1 02:35 Reassessment: pt left via EMS after report given to Chin Styles. pt left [facility] with levophed infusing. Amber with [address] 822 contacted and informed pt was leaving ER. Vital Signs: 07/15 21:16 BP 94 / 56; Pulse 108; Resp 18 A; Temp 94.7(R); Weight 63.05 kg (R); Height 5 ft. 6 in. fc (167.64 cm); Pain 0/10; 21:21 BP 74 / 59; Pulse 108; Resp 18 A; Pulse Ox 100% on ETT ambu; fc 21:26 BP 145 / 98; Pulse 99; Resp 16 A; fc 21:30 BP 113 / 74; Pulse 100; Resp 16 A; Pulse Ox 100% on 100% FiO2 ETT vent; fc 21:32 BP 78 / 64; Pulse 101; Resp 14 A; Pulse Ox 100% on ETT vent; fc 21:33 BP 70 / 59; Pulse 104; Resp 14 A; Pulse Ox 97% on 100% FiO2 ETT vent; fc 21:44 BP 74 / 51; Pulse 102; Resp 25; Pulse Ox 97% on 100% FiO2 ETT vent; fc 21:51 BP 78 / 56; Pulse 103; Resp 25; Temp 93.3; ak1 21:52 BP 76 / 53; Pulse 102; Resp 25 A; Pulse Ox 100% on 100% FiO2 ETT vent; fc 21:54 BP 83 / 53; Pulse 103; Resp 23; Temp 93.4; ak1 21:57 BP 82 / 51; Pulse 104; Resp 23; Temp 93.4; ak1 22:00 BP 80 / 49; Pulse 104; Resp 25; Temp 93.3; ak1 22:03 BP 77 / 56; Pulse 104; Resp 24; Temp 93.2; ak1 22:06 BP 80 / 44; Pulse 104; Resp 19; Temp 93.1; ak1 22:09 BP 81 / 48; Pulse 104; Resp 22; Temp 93; ak1 22:11 BP 69 / 51; Pulse 104; Temp 92.9; ak1 22:12 BP 81 / 47; Pulse 103; Temp 92.8; ak1 22:15 BP 78 / 46; Pulse 103; Temp 92.7; ak1 22:18 BP 80 / 43; Pulse 104; Temp 92.6; ak1 22:21 BP 78 / 40; Pulse 105; Resp 25; Temp 92.6; ak1 22:24 BP 72 / 45; Pulse 105; Resp 25; Temp 92.6; Pulse Ox 86% on 100% FiO2 ETT vent; ak1 22:30 BP 71 / 45; Pulse 103; Resp 25; Temp 92.6(C); Pulse Ox 74% on 100% FiO2 ETT vent; ak1 22:33 BP 70 / 43; Pulse 103; Resp 25; Temp 92.6(C); Pulse Ox 77% on 100% FiO2 ETT vent; ak1 22:36 BP 71 / 44; Pulse 105; Resp 29; Temp 92.6(C); Pulse Ox 78% on 100% FiO2 ETT vent; ak1 22:40 BP 71 / 41; Pulse 104; Resp 49; Pulse Ox 84% on 100% FiO2 ETT vent; ak1 22:57 BP 88 / 54; Pulse 108; Resp 29; Temp 93.1(C); Pulse Ox 84% on 100% FiO2 ETT vent; ak1 23:34 BP 82 / 49; Pulse 117; Resp 30; Temp 94.3; ak1 23:45 BP 86 / 51; Pulse 115; Resp 14; Temp 94.7(C); Pulse Ox 77% on 100% FiO2 ETT vent; ak1 23:50 BP 94 / 62; Pulse 116; Resp 24; Temp 94.8; Pulse Ox 78% on 100% FiO2 ETT vent; ak1 23:55 BP 91 / 61; Pulse 114; Resp 24; Temp 94.9(C); Pulse Ox 81% on 100% FiO2 ETT vent; ak1 07/16 00:00 BP 92 / 67; Pulse 115; Resp 24; Temp 95(C); Pulse Ox 80% on 100% FiO2 ETT vent; ak1 00:05 BP 95 / 65; Pulse 116; Resp 21; Temp 95.1(C); Pulse Ox 80% on 100% FiO2 ETT vent; ak1 00:10 BP 94 / 63; Pulse 116; Resp 24; Temp 95.1; Pulse Ox 80% on 100% FiO2 ETT vent; ak1 00:15 BP 102 / 72; Pulse 115; Resp 24; Temp 95.4(C); Pulse Ox 83% on 100% FiO2 ETT vent; ak1 00:20 BP 99 / 70; Pulse 114; Resp 24; Temp 95.5(C); Pulse Ox 86% on 100% FiO2 ETT vent; ak1 00:30 BP 103 / 62; Pulse 102; Resp 25 A; Temp 95.9(C); Pulse Ox 80% on 100% FiO2 ETT vent; ak1 00:40 BP 94 / 57; Pulse 112; Resp 26 A; Temp 95.9(C); Pulse Ox 80% on 100% FiO2 ETT vent; ak1 00:45 BP 96 / 70; Pulse 111; Resp 25; Temp 96.1(C); Pulse Ox 84% on 100% FiO2 ETT vent; ak1 00:50 BP 99 / 71; Pulse 112; Resp 25; Temp 96.2(C); Pulse Ox 83% on 100% FiO2 ETT vent; ak1 00:55 BP 92 / 56; Pulse 125; Resp 25; Temp 96.3(C); Pulse Ox 78% on 100% FiO2 ETT vent; ak1 01:00 BP 82 / 51; Pulse 125; Resp 25; Temp 96.5(C); Pulse Ox 72% on 100% FiO2 ETT vent; ak1 01:05 BP 83 / 61; Pulse 124; Resp 24; Temp 96.6(C); Pulse Ox 78% on 100% FiO2 ETT vent; ak1 01:15 BP 84 / 61; Pulse 124; Resp 25; Temp 96.9(C); Pulse Ox 74% on 100% FiO2 ETT vent; ak1 01:43 BP 93 / 62; Pulse 131; Resp 25; Temp 97.7(C); Pulse Ox 81% on 100% FiO2 ETT vent; ak1 02:37 BP 91 / 64; Pulse 139; Resp 25; Temp 98.3(C); Pulse Ox 74% on 100% FiO2 ETT vent; ak1 07/15 21:16 Body Mass Index 22.43 (63.05 kg, 167.64 cm) fc 01:05 levophed increased to 25ml/hr ak1 01:15 levophed increased to 8mcg/min ak ED Course: 07/15 21:16 Patient has correct armband on for positive identification. Placed in gown. Bed in low fc position. Call light in reach. Side rails up X2. Maintain EMS IV. Dressing intact. Good blood return noted. Site clean \T\ dry. Gauge \T\ site: IO to left lower leg. O2 via Ambu bag. 21:16 Arm band placed on Patient placed in an exam room, on a stretcher. fc 21:23 EKG completed in triage. Results shown to MD. fc 21:29 Assisted provider with central line placement. Set up central line tray. Triple lumen line placed in right internal jugular. Line placed by Antoine Lamb MD Placement verified by CXR, blood return, Dressed with Tegaderm, Blood was collected. Patient tolerated well. Time-out/Briefing performed prior to start of procedure? Yes. Was handwashing/sanitizing done immediately prior to procedure? Yes. Was patient positioned to in a way to prevent air embolism? Yes. Was procedure site sterilized? Yes, with chlorhexidine. Was the site allowed to dry? Yes. Was local anesthetic and/or sedation utilized? No. During the procedure, did the Practitioner(s) maintain a sterile field? Yes. Were unused ports clamped during insertion? Yes. Was a 2nd qualified MD obtained after 3 unsuccessful insertion attempts? Yes. Was blood aspirated from each lumen? Yes. After the procedure, did the Practitioner(s) clean the site and apply a sterile dressing? Yes. 21:32 Medrano cath inserted, using sterile technique, 16 Fr., by ED staff, balloon inflated, to gravity drainage, Patient tolerated well. 21:43 Patient arrived in ED. 21:48 Antoine Lamb MD is Attending Physician. gs 21:50 Gilberto Hugger blanket applied. 22:00 Triage completed. 22:06 Chest Single View XRAY In Process Unspecified. EDMS 04 00:06 Ct Stroke Brain Wo Cont In Process Unspecified. EDMS 00:06 Angio Aorta For Dissection In Process Unspecified. EDMS 00:10 Josephine Peralta, RN is Primary Nurse. ak1 02:42 Patient transferred, IV remains in place. ak1 02:43 One on one care from 2115 to 243. ak1 Administered Medications: 07/15 21:24 Drug: Dopamine drip 5 mcg/kg/min - (DOPamine 400 mg, D5W 250 ml) {Note: order per dr to start at 12 mcg/kg thru IO per Josephine GODFREY.} Route: IV; Rate: calculated rate; Site: Other; 07/16 02:46 Follow up: IV Status: Infusion continued upon transfer ak1 07/15 21:25 Drug: Sodium Bicarbonate 0.5 amp {Note: 1/2 amb of Na Bicarb (25 meq) IVP thru IO per Jazmin GODFREY.} Route: IVP; Site: Other; 07/16 00:21 Follow up: Response: No adverse reaction ak1 07/15 21:40 Drug: NS 0.9% 1000 ml Route: IV; Rate: 1 bolus; Site: right jugular; ak1 22:15 Drug: Zosyn 4.5 grams Route: IVPB; Infused Over: 60 mins; Site: right jugular; ak1 22:18 Drug: Clindamycin 900 mg Route: IVPB; Infused Over: 30 mins; Site: right jugular; ak1 22:44 Follow up: IV Status: Completed infusion; IV Intake: 50ml ak1 22:40 Drug: NS 0.9% 1000 ml Route: IV; Rate: 150 ml/hr; Site: right jugular; ak1 22:47 Drug: Norepinephrine (4 mg/250 mL D5W) 4 mcg/min Route: IV; Rate: calculated rate; ak1 Site: right jugular; 07/16 02:47 Follow up: IV Status: Infusion continued upon transfer ak1 00:15 Drug: NS 0.9% 1000 ml Route: IV; Rate: 1 bolus; Site: right jugular; ak1 01:19 Follow up: IV Status: Completed infusion; IV Intake: 1000ml ak1 Point of Care Testing: Blood Glucose: 07/15 21:21 Blood Glucose: 71 mg/dL; fc Ranges: Intake: 22:44 IV: 50ml; Total: 50ml. ak1 07/16 01:19 IV: 1000ml; Total: 1050ml. ak1 Output: 00:22 Urine: 50ml (Medrano); Total: 50ml. ak1 Ventilator: 07/15 21:30 Fi02: 100%; Rate: 14min; T.V.: 550ml; Peep: 0cm; Mode: CMV; ET tube: 7.5 mm (Oral); fc 21:44 Fi02: 100%; Rate: 25min; T.V.: 450ml; Mode: CMV; ET tube: 7.5 mm; fc Outcome: 07/16 01:23 ER care complete, transfer ordered by . 02:40 Transferred by ground EMS to [facility], Transfer form ak1 completed. X-rays sent w/ patient. Note: report given to Amber GODFREY for J bed 822 and Chin Duncan Paint Tester with EMS 02:40 critical 02:40 Instructed on the need for transfer. 02:42 Critical Care visit due to shock. ak1 02:45 Patient left the ED. ak1 Signatures: Dispatcher [employer] Na Friedman RN RN Josephine Peralta RN RN ak Antoine Lamb MD MD gs Corrections: (The following items were deleted from the chart) 07/15 23:59 21:16 Method Of Arrival: EMS: [facility] 07/16 00:51 07/15 21:16 BP 94 / 56; Pulse 108bpm; Resp 18bpm; Assisted; Temp 94.7F Rectal; 45.36 kg fc Reported; Height 5 ft. 6 in.; BMI: 16.1; Pain 0/10; fc
[2018-07-16 01:40] LABS: Blood O2 Saturation 69.6 % (92-98.5)
[2018-07-16 01:45] LABS: Arterial Blood Carboxyhemoglob 1.8 % (0-1.5); Blood Gas Oxyhemoglobin 73.8 % (94-97); Blood O2 Saturation 75.8 % (92-98.5)
[2018-07-16] MEDS ORDERED: NOREPINEPHRINE 4mg/D5W 250mL 4 MG/250 ML BAG IV ONE (02:28)
--- NOTE | 2018-07-16 08:13 | RAD REPORT ---
EXAM DESCRIPTION: RAD - Chest Single View - 07/15/2018 10:05 pm CLINICAL HISTORY: Intubation, respiratory distress, central line placement COMPARISON: April 18 TECHNIQUE: AP portable chest image was obtained 2141 hours . FINDINGS: Resuscitation paddles are in place. Right jugular central line has been placed. Tip is in the mid SVC. There is no pneumothorax. Endotracheal tube is in place 1 centimeter above the aortic arch. Underlying interstitial fibrotic pattern is present. Consolidated infiltrate of the right upper lobe is present from infection or aspiration. A much smaller lateral right base pneumonia is present along with minimal airspace opacification left midlung field. Heart and vasculature are normal. No measura ble pleural effusion. No acute bony abnormality seen. No acute aortic findings suspected. IMPRESSION: Right jugular central line in good position. No pneumothorax. ET tube in good position 1 centimeter above the aortic arch. Large infectious or aspiration pneumonia in the right upper lobe with mild pneumonia changes left mid lung field and lateral right base.
--- NOTE | 2018-07-16 11:35 | RAD REPORT ---
EXAM DESCRIPTION: CT - Angio Aorta For Dissection - 07/16/2018 3:20 am CLINICAL HISTORY: The patient is 67 years old and is Male; S/P cardiac arrest TECHNIQUE: Axial computed tomography images of the chest, abdomen and pelvis with intravenous contra st during the arterial phase of enhancement. Sagittal and coronal reformatted images were created a nd reviewed. This CT exam was performed using one or more of the following dose reduction technique s: automated exposure control, adjustment of the mA and/or kV according to patient size, and/or use of iterative reconstruction technique. COMPARISON: None. FINDINGS: VASCULATURE: AORTA: Atherosclerotic calcification of the abdominal aorta and iliac vasculature. No aortic aneurysm. No dissection. PULMONARY ARTERIES: Unremarkable as visualized. No pulmonary embolism is identified. GREAT VESSELS OF AORTIC ARCH: No acute findings. No dissection. No arterial occlusion or signi ficant stenosis. CELIAC TRUNK AND MESENTERIC ARTERIES: No acute findings. No occlusion or significant stenosis. RENAL ARTERIES: Duplicated right renal artery. Advanced atherosclerotic disease of the origin of the left renal artery. No occlusion or significant stenosis. ILIAC ARTERIES: No acute findings. No occlusion or significant stenosis. CHEST: LUNGS: Complete opacity of the right apical/mid lung zones with scattered tortuous tubular lucenci es suggestive of bronchiectasis. Similar appearing finding is seen in the left lower lobe. Advanced paraseptal emphysematous changes. PLEURAL SPACE: 10.5 x 10.5 x 5.4 cm pleural-based fluid lesion with air-fluid level in the right l ower lobe most suggestive of empyema. Additional similar-appearing finding is seen measuring 3.9 x 2. 8 cm within the left midlung zone just above previously described pleural-based fluid collection. Multiple right lower mid and lower lung zone pleural based abnormality with air-fluid levels most suggestive of empyema. HEART: Unremarkable. No cardiomegaly. No significant pericardial effusion. MEDIASTINUM: Fluid-filled distal esophagus. ABDOMEN: LIVER: Hepatic steatosis. GALLBLADDER AND BILE DUCTS: Prior cholecystectomy. No ductal dilation. PANCREAS: Unremarkable. No ductal dilation. No mass. SPLEEN: Unremarkable. No splenomegaly. ADRENALS: Unremarkable. No mass. KIDNEYS AND URETERS: Multiple bilateral wedge-shaped area of hypoenhancement scattered throughout the bilateral renal parenchyma. No hydronephrosis. No perinephric stranding. No solid mass. STOMACH AND BOWEL: Unremarkable. No obstruction. No mucosal thickening. PELVIS: APPENDIX: No findings to suggest acute appendicitis. BLADDER: Medrano catheter in place. REPRODUCTIVE: Unremarkable as visualized. CHEST, ABDOMEN and PELVIS: INTRAPERITONEAL SPACE: Unremarkable. No significant fluid collection. No free air. BONES/JOINTS: Grade 1 anterolisthesis of L4 on L5 from degenerative basis. Mild lower lumbar degen erative disease. No acute fracture. No dislocation. SOFT TISSUES: Unremarkable. LYMPH NODES: Right hilar lymphadenopathy. TUBES, LINES AND DEVICES: Endotracheal tube is seen terminating approximately 4.6 cm above the car roselia. Right IJ central venous line is partially seen terminating in the distal SVC. Gastrostomy tube i n place IMPRESSION: 1. No aortic dissection or aneurysm. 2. Advanced chronic lung changes and advanced opacity of the right upper/mid lung zones as well as le ft lower lobe concerning for multifocal pneumonia/aspiration. Atypical pathogen such as mycobacterium tuberculosis cannot be excluded. Correlation with patient's history and serology is recommended. 3. Heterogenous enhancement pattern of the renal parenchyma with multiple wedge-shaped cortical med ullary hypodensities concerning for renal infarcts. 4. Multiple pleural-based lesions with air-fluid levels suggestive of empyema. Cavitary lesions can not be entirely excluded. 5. Bulky right hilar lymphadenopathy, likely reactive. Electronically signed by: Edison Abdul DO 07/16/2018 12:31 AM [facility] ADDENDUM: THIS REPORT CONTAINS FINDINGS THAT MAY BE CRITICAL TO PATIENT'S CARE: The findings were verbally discussed via telephone conference with Dr.Ianir Doherty by Dr. Abdul on 07/16/2018 12:36 AM CDT. The results were acknowledged and understood. Electronically signed by: Edison Abdul DO 07/16/2018 12:36 AM [facility] End of Addendum EXAM DESCRIPTION: CT Chest With Intravenous Contrast CT Abdomen and Pelvis With Intravenous Contrast CLINICAL HISTORY: The patient is 67 years old and is Male; S/P cardiac arrest TECHNIQUE: Axial computed tomography images of the chest, abdomen and pelvis with intravenous contra st during the arterial phase of enhancement. Sagittal and coronal reformatted images were created a nd reviewed. This CT exam was performed using one or more of the following dose reduction technique s: automated exposure control, adjustment of the mA and/or kV according to patient size, and/or use of iterative reconstruction technique. COMPARISON: None. FINDINGS: VASCULATURE: AORTA: Atherosclerotic calcification of the abdominal aorta and iliac vasculature. No aortic aneurysm. No dissection. PULMONARY ARTERIES: Unremarkable as visualized. No pulmonary embolism is identified. GREAT VESSELS OF AORTIC ARCH: No acute findings. No dissection. No arterial occlusion or signi ficant stenosis. CELIAC TRUNK AND MESENTERIC ARTERIES: No acute findings. No occlusion or significant stenosis. RENAL ARTERIES: Duplicated right renal artery. Advanced atherosclerotic disease of the origin of the left renal artery. No occlusion or significant stenosis. ILIAC ARTERIES: No acute findings. No occlusion or significant stenosis. CHEST: LUNGS: Complete opacity of the right apical/mid lung zones with scattered tortuous tubular lucenci es suggestive of bronchiectasis. Similar appearing finding is seen in the left lower lobe. Advanced paraseptal emphysematous changes. PLEURAL SPACE: 10.5 x 10.5 x 5.4 cm pleural-based fluid lesion with air-fluid level in the right l ower lobe most suggestive of empyema. Additional similar-appearing finding is seen measuring 3.9 x 2. 8 cm within the left midlung zone just above previously described pleural-based fluid collection. Multiple right lower mid and lower lung zone pleural based abnormality with air-fluid levels most suggestive of empyema. HEART: Unremarkable. No cardiomegaly. No significant pericardial effusion. MEDIASTINUM: Fluid-filled distal esophagus. ABDOMEN: LIVER: Hepatic steatosis. GALLBLADDER AND BILE DUCTS: Prior cholecystectomy. No ductal dilation. PANCREAS: Unremarkable. No ductal dilation. No mass. SPLEEN: Unremarkable. No splenomegaly. ADRENALS: Unremarkable. No mass. KIDNEYS AND URETERS: Multiple bilateral wedge-shaped area of hypoenhancement scattered throughout the bilateral renal parenchyma. No hydronephrosis. No perinephric stranding. No solid mass. STOMACH AND BOWEL: Unremarkable. No obstruction. No mucosal thickening. PELVIS: APPENDIX: No findings to suggest acute appendicitis. BLADDER: Medrano catheter in place. REPRODUCTIVE: Unremarkable as visualized. CHEST, ABDOMEN and PELVIS: INTRAPERITONEAL SPACE: Unremarkable. No significant fluid collection. No free air. BONES/JOINTS: Grade 1 anterolisthesis of L4 on L5 from degenerative basis. Mild lower lumbar degen erative disease. No acute fracture. No dislocation. SOFT TISSUES: Unremarkable. LYMPH NODES: Right hilar lymphadenopathy. TUBES, LINES AND DEVICES: Endotracheal tube is seen terminating approximately 4.6 cm above the car roselia. Right IJ central venous line is partially seen terminating in the distal SVC. Gastrostomy tube i n place IMPRESSION: 1. No aortic dissection or aneurysm. 2. Advanced chronic lung changes and advanced opacity of the right upper/mid lung zones as well as le ft lower lobe concerning for multifocal pneumonia/aspiration. Atypical pathogen such as mycobacterium tuberculosis cannot be excluded. Correlation with patient's history and serology is recommended. 3. Heterogenous enhancement pattern of the renal parenchyma with multiple wedge-shaped cortical med ullary hypodensities concerning for renal infarcts. 4. Multiple pleural-based lesions with air-fluid levels suggestive of empyema. Cavitary lesions can not be entirely excluded. 5. Bulky right hilar lymphadenopathy, likely reactive. Electronically signed by: Edison Abdul DO 07/16/2018 12:31 AM CDT Due to temporary technical issues with the PACS/Fluency reporting system, reports are being signed by the in house radiologist as a courtesy to ensure prompt reporting. The interpreting radiologist is f ully responsible for the content of the report.
--- NOTE | 2018-07-16 11:35 | RAD REPORT ---
EXAM DESCRIPTION: CT - Ct Stroke Brain Wo Cont - 07/16/2018 3:23 am CLINICAL HISTORY: Status post cardiac arrest. Became unresponsive and slumped over during a bout. COMPARISON: None. TECHNIQUE: Axial [address] imaging of the brain. Reformatted coronal and sagittal images ob tained. This examination was performed according to our departmental dose optimization program, which include s automated exposure control, adjustment of the mA and/or kV according to patient size and/or use of iterative reconstruction technique. FINDINGS: The ventricles and extra-axial fluid spaces are mildly prominent due to cortical volume lo ss. There is a hypoattenuating defect within the left occipital lobe due to an subacute to old infarc tion. A small hyperdense focus along the posterior aspect of this hypodensity may represent a small f ocus of hemorrhage or early mineralization. An additional small hyperdense focus within the right occ ipital lobe is also noted which may represent subacute or old infarct.. No mass lesion or midline uziel ft. No large acute territorial infarction. Mild decreased white matter attenuation secondary to chron ic microvascular ischemic change. Focal hypodensity within the anterior left cerebellum due to remote infarct. Right cerebellar hemisph ere and vermis appear normal. Fourth ventricle is midline. Prepontine cisterns are not effaced. Normal appearance of the right and left globe and remaining intraorbital contents. The paranasal sinu ses are clear. Mastoid air cells are clear bilaterally. Intact skull base. Intact calvarium. Internal carotid artery calcifications are present to the cavernous segments. IMPRESSION: 1. Hypodense defect within the left occipital lobe and tiny hypodensity in the right occ ipital lobe consistent with a subacute to old infarctions. There may be a small focus of hemorrhage o r early mineralization within the left occipital lesion. 2. Mild senescent brain changes. Findings directly communicated to Dr. Antoine Lamb at 0014 hours on 07/16/2018. Electronically signed by: Osiris Montes DO 07/16/2018 12:18 AM CDT Due to temporary technical issues with the PACS/Fluency reporting system, reports are being signed by the in house radiologist as a courtesy to ensure prompt reporting. The interpreting radiologist is f ully responsible for the content of the report.
--- NOTE | 2018-07-17 11:35 | EKG ---
Test Date: 2018-07-15 Test Time: 21:23:43 [employer]unnel El[employer] Operator Zigzag: ESTEBAN MEASUREMENT RESULTS: Intervals: Rate: 99 UT: 138 QRSD: 94 QT: 420 QTc: 539 [place]: P: 83 UT: 138 QRS: 58 T: -36 INTERPRETIVE STATEMENTS: Sinus rhythm with premature ventricular complexes Low voltage QRS Nonspecific ST and T wave abnormality Abnormal ECG Compared to ECG 04/18/2018 01:19:59 Low QRS voltage now present Sinus tachycardia no longer present Atrial premature complex(es) no longer present PVC s now present ST (T wave) deviation still present Electronically Signed On 07-16-18 10:50:00 CDT by Mingo Aponte
--- NOTE | 2018-07-17 11:35 | EKG ---
Test Date: 2018-07-15 Test Time: 22:25:08 Air Quality Manager: [id number] MEASUREMENT RESULTS: Intervals: Rate: 105 RI: 140 QRSD: 112 QT: 378 QTc: 499 [place]: P: 80 RI: 140 QRS: 69 T: -36 INTERPRETIVE STATEMENTS: Sinus tachycardia RSR' or QR pattern in V1 suggests right ventricular conduction delay ST & T wave abnormality, consider anterior ischemia Abnormal ECG Compared to ECG 07/15/2018 21:23:43 RSR' in V1 or V2 now present ST (T wave) deviation still present Electronically Signed On 07-16-18 10:49:04 CDT by Mingo Aponte
== END 2018-07-16 02:45 | disposition short-term general hospital (02) ==
LOC: ER 21:15
PROC: 05HM33Z Insertion of Infusion Device into Right Internal Jugular Vein, Percutaneous Approach (ICD-10-PCS; principal; 2018-07-16)
PROC: 0BH17EZ Insertion of Endotracheal Airway into Trachea, Via Natural or Artificial Opening (ICD-10-PCS; 2018-07-16)
PROC: 5A1935Z Respiratory Ventilation, Less than 24 Consecutive Hours (ICD-10-PCS; 2018-07-16)
DX: I46.9 Cardiac arrest, cause unspecified (principal); R65.21 Severe sepsis with septic shock; J85.1 Abscess of lung with pneumonia; J44.9 Chronic obstructive pulmonary disease, unspecified; Z72.0 Tobacco use; Z85.12 Personal history of malignant neoplasm of trachea; Z86.73 Personal history of transient ischemic attack (TIA), and cerebral infarction without residual deficits
CPT/HCPCS: 93005 ×2; 87040 ×2; 85025; 80048; 36415; 82550; 85610; 82962; 80076; 83605; 84484; 83690; 84145; 71275; 74175; 70450; 71045; 94002 ×2; 82805 ×3; 94003; 36556; 31500; Q9967; J1265; J7030 ×2; 51702; 81003; 81015; 92950; 99291; 99292